=== PATIENT | female | born 1935 | race Caucasian/White ===

== ENCOUNTER 2024-06-10 00:38 | Inpatient (IN) | payer MEDICARE, OTHER ==
[~2024-06-10] VITALS: Ht 162.6 cm; Wt 58.1 kg
[2024-06-10] MEDS ORDERED: MAGN400O6 PO (01:07)
[2024-06-10] MEDS ORDERED: ERGO2000 PO (01:07)
[2024-06-10] MEDS ORDERED: METO-357 PO (01:07)
[2024-06-10] MEDS ORDERED: ESOM40CA PO (01:07)
[2024-06-10] MEDS ORDERED: ROSU20TA2 PO (01:07)
[2024-06-10] MEDS ORDERED: IVER3TAB2 PO (01:07)
[2024-06-10] MEDS ORDERED: LATA7.5D EACHEYE (01:07)
[2024-06-10] MEDS ORDERED: POTA8TAB3 PO (01:07)
[2024-06-10] MEDS ORDERED: METH5TAB70 PO (01:07)
[2024-06-10] MEDS ORDERED: AMLO-212 PO (01:07)
[2024-06-10] MEDS ORDERED: ACET-73 PO (01:07)
[2024-06-10] MEDS ORDERED: CYAN100T44 PO (01:07)
[2024-06-10] MEDS ORDERED: ASPI81TA31 PO (01:07)
[2024-06-10] MEDS ORDERED: FURO20TA4 PO (01:07)
[2024-06-10] MEDS ORDERED: DIVA125C2 PO (01:07)
[2024-06-10] MEDS ORDERED: LOSA50TA39 PO (01:07)
[2024-06-10] MEDS ORDERED: MEMA10TA PO (01:07)
[2024-06-10] MEDS ORDERED: FERR325T6 PO (01:07)
[2024-06-10] MEDS ORDERED: NAPR-1196 PO (01:07)
[2024-06-10 01:26] LABS: BASOPHILS % (AUTO) 0.8 % (0.0-2.0); EOSINOPHILS # (AUTO) 0.2 K/uL (0.0-0.7); EOSINOPHILS % (AUTO) 3.1 % (0.0-7.0); HEMATOCRIT 34.4 % (31.2-41.9); HEMOGLOBIN 10.9 g/dL (10.9-14.3); LYMPHOCYTES # (AUTO) 2.1 K/uL (0.8-4.8); MEAN CORPUSCULAR HEMOGLOBIN 30.5 uug (24.7-32.8); MEAN CORPUSCULAR HGB CONC 32 g/dL (32.3-35.6); MEAN CORPUSCULAR VOLUME 96.4 fL (75.5-95.3); MONOCYTES # (AUTO) 0.5 K/uL (0.1-1.30); MONOCYTES % (AUTO) 9.7 % (0.0-11.0); NEUTROPHILS # (AUTO) 2.1 K/uL (1.8-8.9); NEUTROPHILS % (AUTO) 43.4 % (38.5-71.5); PLATELET COUNT (AUTO) 210 K/uL (179-408); RED BLOOD CELL COUNT(AUTO) 3.57 MIL/uL (3.63-4.92); WHITE BLOOD COUNT (AUTO) 4.9 K/uL (3.8-11.8)
[2024-06-10 01:54] LABS: *BILIRUBIN,URIN NEGATIVE (NEGATIVE); *BLOOD, URINE NEGATIVE (NEGATIVE); *CLARITY,URINE CLEAR (CLEAR); *COLOR,URINE YELLOW (YELLOW); *KETONES,URINE NEGATIVE (NEGATIVE); *PROTEIN,URINE TRACE (NEGATIVE); *UROBILINOGEN,URINE 0.2 E.U./dl (NORMAL); LEUKOCYTE ESTERASE ,URINE NEGATIVE (NEGATIVE); NITRITE, URINE NEGATIVE (NEGATIVE); UGLUCOSE NEGATIVE (NEGATIVE)
[2024-06-10 02:00] LABS: THYROID STIMULATING HORMONE 1.066 mIU/mL (0.358-3.740)
[2024-06-10 02:11] LABS: ETHANOL < 3 MG/DL (0-10)
[2024-06-10 02:29] LABS: BACTERIA,URINE FEW /HPF (NONE SEEN); RBC,URINE 0-3 /HPF (0-3); SQUAMOUS EPITHELIAL CELL,UR FEW /HPF (NONE SEEN); WBC,URINE NONE SEEN /HPF (0-3)
[2024-06-10 02:48] LABS: *AMPHETAMINE, URINE NEGATIVE (NEGATIVE); *BARBITURATE, URINE NEGATIVE (NEGATIVE); *BENZODIAZEPINE, URINE NEGATIVE (NEGATIVE); *CANNABINOID, URINE NEGATIVE (NEGATIVE); *COCCAINE, URINE NEGATIVE (NEGATIVE); *OPIATE, URINE NEGATIVE (NEGATIVE); *PHENCYCLIDINE SCREEN,URINE NEGATIVE (NEGATIVE); FENTANYL, URINE NEGATIVE (NEGATIVE)
[2024-06-10 03:03] LABS: ALANINE AMINOTRANSFERASE 11 U/L (14-59); ALBUMIN 3.6 g/dL (3.4-5.0); ALKALINE PHOSPHATASE 84 U/L (50-136); ASPARTATE AMINOTRANSFERASE 7 U/L (15-37); BILIRUBIN,DIRECT 0.2 mg/dL (0.0-0.2); BILIRUBIN,TOTAL 0.6 mg/dL (0.2-1.0); CARBON DIOXIDE 32 mmol/L (21-32); CHLORIDE 104 mmol/L (98-107); CREATININE 1.1 mg/dL (0.6-1.3); GLUCOSE 103 mg/dL (74-106); POTASSIUM 4.1 mmol/L (3.5-5.1); SODIUM SERUM 144 mmol/L (136-145); TOTAL PROTEIN, SERUM 7.1 g/dL (6.4-8.2); UREA NITROGEN, BLOOD 28 mg/dL (7-18)
[2024-06-10 03:26] LABS: ACETAMINOPHEN < 10.0 ug/mL (10-30)
[2024-06-10 06:05] VITALS: BP 152/71; TEMP 98; O2SAT 96
[2024-06-10 07:54] VITALS: BP 155/64; TEMP 98.6; O2SAT 97
[2024-06-10] MEDS ORDERED: MAGNESIUM HYDROXIDE 30 ML LIQUID UDC PO PRN (08:45)
[2024-06-10] MEDS ORDERED: ACETAMINOPHEN 325 MG TABLET PO PRN (08:45)
[2024-06-10] MEDS ORDERED: MAG HYDROX/AL HYDROX/SIMETH 30 ML LIQUID UDC PO PRN (08:45)
[2024-06-10] MEDS ORDERED: ZOLPIDEM 5 MG TABLET PO PRN (08:45)
[2024-06-10] MEDS ORDERED: QUETIAPINE FUMARATE 25 MG TABLET PO PRN (08:45)
[2024-06-10] MEDS ORDERED: ACET-2154 PO (09:44)
[2024-06-10] MEDS ORDERED: MEMA7CAP2 PO (09:44)
[2024-06-10] MEDS ORDERED: ACET325T53 PO (09:44)
[2024-06-10] MEDS ORDERED: ERGO500040 PO (09:44)
[2024-06-10 16:57] VITALS: BP 152/54; TEMP 98.4; O2SAT 97
[2024-06-10 20:05] VITALS: BP 148/60; TEMP 98.3; O2SAT 96
[2024-06-10] MEDS: MIRTAZAPINE 15 MG TABLET PO SCH (20:29)
[2024-06-11] MEDS: ENSURE ENLIVE (VAN) 240 ML LIQUID PO SCH (08:35)
[2024-06-11 09:12] VITALS: BP 147/65; TEMP 98.2; O2SAT 98
[2024-06-11] MEDS ORDERED: MAGNESIUM HYDROXIDE 30 ML LIQUID UDC PO PRN (09:45)
[2024-06-11] MEDS ORDERED: ACETAMINOPHEN 325 MG TABLET-SA PATIENTS-PAIN ONLY PO PRN (09:45)
[2024-06-11] MEDS ORDERED: ACETAMINOPHEN 325 MG TABLET PO PRN (11:30)
[2024-06-11] MEDS: METOPROLOL SUCCINATE XL 50 MG TAB.SR.24H PO SCH (12:00)
[2024-06-11] MEDS: PANTOPRAZOLE SODIUM 40 MG TABLET.DR PO SCH (12:00)
[2024-06-11] MEDS: MEMANTINE HCL 5 MG TABLET PO SCH (12:00)
[2024-06-11] MEDS: FERROUS SULFATE 325 MG TABEC PO SCH (12:00)
[2024-06-11] MEDS: AMLODIPINE 5 MG TABLET PO SCH (12:00)
[2024-06-11] MEDS: POTASSIUM CHLORIDE 8 MEQ TAB.PRT.SR PO SCH (12:29)
[2024-06-11] MEDS: IVERMECTIN 3 MG TABLET PO SCH (12:29)
[2024-06-11] MEDS: METHIMAZOLE 5 MG TABLET PO SCH (12:30)
[2024-06-11 14:52] LABS: BASOPHILS # (AUTO) 0.1 K/UL (0.0-0.2); BASOPHILS % (AUTO) 1.1 % (0.0-2.0); EOSINOPHILS % (AUTO) 0.4 % (0.0-7.0); HEMATOCRIT 32.9 % (31.2-41.9); HEMOGLOBIN 10.9 g/dL (10.9-14.3); LYMPHOCYTES % (AUTO) 20.1 % (20.5-51.5); MEAN CORPUSCULAR HEMOGLOBIN 30.5 uug (24.7-32.8); MEAN CORPUSCULAR HGB CONC 33 g/dL (32.3-35.6); MEAN CORPUSCULAR VOLUME 92.5 fL (75.5-95.3); MONOCYTES # (AUTO) 0.3 K/uL (0.1-1.30); MONOCYTES % (AUTO) 5.8 % (0.0-11.0); NEUTROPHILS # (AUTO) 3.8 K/uL (1.8-8.9); NEUTROPHILS % (AUTO) 72.6 % (38.5-71.5); PLATELET COUNT (AUTO) 205 K/uL (179-408); RED BLOOD CELL COUNT(AUTO) 3.56 MIL/uL (3.63-4.92); RED CELL DISTRIBUTION WIDTH 15.7 % (12.3-17.7); WHITE BLOOD COUNT (AUTO) 5.2 K/uL (3.8-11.8)
[2024-06-11 14:55] LABS: DIFFERENTIAL COMMENT 1
[2024-06-11 15:29] LABS: ALANINE AMINOTRANSFERASE 7 U/L (14-59); ALBUMIN 3.5 g/dL (3.4-5.0); ALKALINE PHOSPHATASE 77 U/L (50-136); ASPARTATE AMINOTRANSFERASE 12 U/L (15-37); BILIRUBIN,TOTAL 0.6 mg/dL (0.2-1.0); CALCIUM 8.8 mg/dL (8.5-10.1); CARBON DIOXIDE 30 mmol/L (21-32); CHLORIDE 106 mmol/L (98-107); CREATININE 1.1 mg/dL (0.6-1.3); GLUCOSE 152 mg/dL (74-106); POTASSIUM 3.6 mmol/L (3.5-5.1); SODIUM SERUM 145 mmol/L (136-145); UREA NITROGEN, BLOOD 25 mg/dL (7-18)
[2024-06-11 16:19] VITALS: BP 135/67; TEMP 98.1; O2SAT 98
[2024-06-11] MEDS: FUROSEMIDE 20 MG TABLET PO SCH (16:24)
[2024-06-11] MEDS: NAPROXEN 250 MG TABLET PO SCH (16:24)
[2024-06-11 20:04] VITALS: BP 140/66; TEMP 98.2; O2SAT 96
[2024-06-11] MEDS: ATORVASTATIN 40 MG TABLET PO SCH (20:48)
[2024-06-12 08:20] VITALS: BP 145/59; TEMP 98.5; O2SAT 98
[2024-06-12] MEDS: ASPIRIN 81 MG TAB.CHEW PO SCH (08:51)
[2024-06-12] MEDS: ERGOCALCIFEROL 50,000 UNIT CAPSULE PO SCH (08:52)
[2024-06-12] MEDS: CYANOCOBALAMIN 100 MCG TABLET PO SCH (08:53)
[2024-06-12] MEDS ORDERED: Medication Not On Formulary EA (Rosuvastatin Calcium (Crestor) 20 MG) PO SCH (09:00)
[2024-06-12] MEDS ORDERED: Medication Not On Formulary EA (Esomeprazole Mag Trihydrate (Nexium) 40 MG) PO SCH (09:00)
[2024-06-12] MEDS ORDERED: Medication Not On Formulary EA (Potassium Chloride (Klor-Con 8) 8 MEQ) PO SCH (09:00)
[2024-06-12] MEDS ORDERED: Medication Not On Formulary EA (Ferrous Sulfate 325 MG) PO SCH (09:00)
[2024-06-12] MEDS ORDERED: IVERMECTIN 3 MG TABLET PO SCH (09:00)
[2024-06-12] MEDS ORDERED: Medication Not On Formulary EA (Memantine HCl (Memantine HCl ER) 7 MG) PO SCH (09:00)
[2024-06-12] MEDS: LOSARTAN POTASSIUM 50 MG TABLET PO SCH (12:00)
[2024-06-12] MEDS: OXCARBAZEPINE 150 MG TABLET PO SCH (12:30)
[2024-06-12 16:41] VITALS: BP 125/63; TEMP 98.3; O2SAT 98
[2024-06-12 19:52] VITALS: BP 130/56; TEMP 98.1; O2SAT 98
[2024-06-12] MEDS: QUETIAPINE FUMARATE 25 MG TABLET PO SCH (21:08)
[2024-06-13 07:38] VITALS: BP 145/74; TEMP 97.8; O2SAT 96
[2024-06-13] MEDS: CYANOCOBALAMIN 1,000 MCG TABLET PO SCH (08:35)
[2024-06-13 15:26] VITALS: BP 153/85; TEMP 98; O2SAT 96
[2024-06-13] MEDS: OXCARBAZEPINE 150 MG TABLET PO SCH (16:15)
[2024-06-13 19:48] VITALS: BP 146/74; TEMP 98.1; O2SAT 96
[2024-06-13] MEDS: QUETIAPINE FUMARATE 25 MG TABLET PO SCH (20:08)
[2024-06-14 07:49] VITALS: BP 123/80; TEMP 98.4; O2SAT 100
[2024-06-14 16:13] VITALS: BP 132/57; TEMP 98; O2SAT 98
[2024-06-14 20:18] VITALS: BP 126/62; TEMP 97.9; O2SAT 98
[2024-06-14] MEDS: ATORVASTATIN 20 MG TABLET PO SCH (20:22)
[2024-06-15 08:16] VITALS: BP 114/60; TEMP 98; O2SAT 99
[2024-06-15] MEDS ORDERED: CYANOCOBALAMIN 1,000 MCG TABLET PO SCH (09:00)
[2024-06-15 15:13] VITALS: BP 128/51; TEMP 98; O2SAT 99
[2024-06-15 20:00] VITALS: BP 140/64; TEMP 98; O2SAT 95
[2024-06-16 08:00] VITALS: BP 134/75; TEMP 98
[2024-06-16 16:00] VITALS: BP 136/65; TEMP 98.1; O2SAT 97
[2024-06-16 20:07] VITALS: BP 146/60; TEMP 98.2; O2SAT 98
[2024-06-17 08:19] VITALS: BP 125/97; TEMP 98.1; O2SAT 98
[2024-06-17 17:37] VITALS: BP 139/70; TEMP 98; O2SAT 99
[2024-06-17 20:00] VITALS: BP 107/64; TEMP 98.2; O2SAT 97
[2024-06-18 08:15] VITALS: BP 142/70; TEMP 98.3; O2SAT 98
[2024-06-18] MEDS: QUETIAPINE FUMARATE 25 MG TABLET PO SCH (08:28)
[2024-06-18 16:19] VITALS: BP 147/62; TEMP 98.1; O2SAT 98
[2024-06-18 19:30] VITALS: BP_SYST 130; BP_SYST 76; BP_DIAS 40; BP_DIAS 61; TEMP 97.2; TEMP 97.4; O2SAT 97
[2024-06-19 09:00] VITALS: BP 117/62; TEMP 98.3; O2SAT 98
[2024-06-19 15:04] VITALS: BP 130/73; TEMP 98.1; O2SAT 98
[2024-06-19] MEDS: MEMANTINE HCL 5 MG TABLET PO SCH (17:15)
[2024-06-19 20:00] VITALS: BP 136/79; TEMP 97.7; O2SAT 97
[2024-06-20 07:38] VITALS: BP 132/63; TEMP 98; O2SAT 98
[2024-06-20 15:03] VITALS: BP 131/59; TEMP 98; O2SAT 98
[2024-06-20 20:00] VITALS: BP 123/78; TEMP 98.1; O2SAT 97
[2024-06-21 07:45] LABS: CALCIUM 8.9 mg/dL (8.5-10.1); CARBON DIOXIDE 31 mmol/L (21-32); CHLORIDE 109 mmol/L (98-107); CREATININE 1.1 mg/dL (0.6-1.3); GLUCOSE 79 mg/dL (74-106); MAGNESIUM 2.2 mg/dL (1.8-2.4); POTASSIUM 4.4 mmol/L (3.5-5.1); SODIUM SERUM 146 mmol/L (136-145); UREA NITROGEN, BLOOD 40 mg/dL (7-18)
[2024-06-21 07:46] VITALS: BP 150/67; TEMP 98; O2SAT 99
[2024-06-21 15:50] VITALS: BP 133/58; TEMP 98.2; O2SAT 99
[2024-06-21 20:00] VITALS: BP 156/69; TEMP 98; O2SAT 98
[2024-06-21] MEDS: QUETIAPINE FUMARATE 25 MG TABLET PO SCH (21:18)
[2024-06-22 07:48] VITALS: BP 169/64; TEMP 98; O2SAT 100
[2024-06-22 10:17] LABS: EOSINOPHILS # (AUTO) 0.1 K/uL (0.0-0.7); EOSINOPHILS % (AUTO) 2.1 % (0.0-7.0); HEMATOCRIT 33.5 % (31.2-41.9); LYMPHOCYTES # (AUTO) 0.9 K/uL (0.8-4.8); LYMPHOCYTES % (AUTO) 25.4 % (20.5-51.5); MEAN CORPUSCULAR HEMOGLOBIN 30.8 uug (24.7-32.8); MEAN CORPUSCULAR HGB CONC 33 g/dL (32.3-35.6); MEAN CORPUSCULAR VOLUME 93.7 fL (75.5-95.3); MONOCYTES # (AUTO) 0.3 K/uL (0.1-1.30); MONOCYTES % (AUTO) 9.1 % (0.0-11.0); NEUTROPHILS # (AUTO) 2.3 K/uL (1.8-8.9); NEUTROPHILS % (AUTO) 62.4 % (38.5-71.5); PLATELET COUNT (AUTO) 207 K/uL (179-408); RED BLOOD CELL COUNT(AUTO) 3.58 MIL/uL (3.63-4.92); RED CELL DISTRIBUTION WIDTH 15.9 % (12.3-17.7); WHITE BLOOD COUNT (AUTO) 3.7 K/uL (3.8-11.8)
[2024-06-22 10:24] LABS: DIFFERENTIAL COMMENT 1
[2024-06-22 10:44] LABS: ALANINE AMINOTRANSFERASE 19 U/L (14-59); ALBUMIN 3.4 g/dL (3.4-5.0); ALKALINE PHOSPHATASE 73 U/L (50-136); ASPARTATE AMINOTRANSFERASE 19 U/L (15-37); BILIRUBIN,TOTAL 0.4 mg/dL (0.2-1.0); CALCIUM 8.8 mg/dL (8.5-10.1); CARBON DIOXIDE 30 mmol/L (21-32); CHLORIDE 107 mmol/L (98-107); CREATININE 1.2 mg/dL (0.6-1.3); GLUCOSE 110 mg/dL (74-106); MAGNESIUM 2.1 mg/dL (1.8-2.4); POTASSIUM 3.8 mmol/L (3.5-5.1); SODIUM SERUM 145 mmol/L (136-145); UREA NITROGEN, BLOOD 40 mg/dL (7-18)
[2024-06-22 15:47] VITALS: BP 145/54; TEMP 98; O2SAT 98
[2024-06-22 20:00] VITALS: BP 135/61; TEMP 98; O2SAT 98
[2024-06-23 07:47] VITALS: BP 153/71; TEMP 98.4; O2SAT 99
[2024-06-23 15:12] VITALS: BP 134/70; TEMP 98; O2SAT 98
[2024-06-23 20:00] VITALS: BP 129/67; TEMP 98; O2SAT 97
[2024-06-24 08:45] VITALS: BP 160/61; TEMP 98.2; O2SAT 98
[2024-06-24 17:13] VITALS: BP 128/59; TEMP 98.1; O2SAT 98
[2024-06-24 20:00] VITALS: BP 148/68; TEMP 98.1; O2SAT 97
[2024-06-25 09:22] VITALS: BP 159/63; TEMP 98.1; O2SAT 97
[2024-06-25 17:23] VITALS: BP 149/77; TEMP 98; O2SAT 97
[2024-06-25 19:56] VITALS: BP 140/66; TEMP 98; O2SAT 96
[2024-06-26 07:57] VITALS: BP 111/66; TEMP 97.8; O2SAT 98
[2024-06-26 15:18] VITALS: BP 130/67; TEMP 97.6; O2SAT 98
== END 2024-06-26 15:15 | DRG 885 ==
LOC: ER 01:16 → GPS 05:38
PROVIDERS: ADMIT Psychiatry & Neurology Psychiatry; ATTEND Student in an Organized Health Care Education/Training Program
DX: F39 Unspecified mood [affective] disorder (principal); I11.0 Hypertensive heart disease with heart failure; F03.911 Unspecified dementia, unspecified severity, with agitation; F03.94 Unspecified dementia, unspecified severity, with anxiety; F03.93 Unspecified dementia, unspecified severity, with mood disturbance; E78.5 Hyperlipidemia, unspecified; R26.81 Unsteadiness on feet; M62.81 Muscle weakness (generalized); Z79.899 Other long term (current) drug therapy; H40.9 Unspecified glaucoma; E53.8 Deficiency of other specified B group vitamins; Z91.148 Patient's other noncompliance with medication regimen for other reason; R79.89 Other specified abnormal findings of blood chemistry; E05.90 Thyrotoxicosis, unspecified without thyrotoxic crisis or storm; Z87.440 Personal history of urinary (tract) infections; L30.9 Dermatitis, unspecified; I25.10 Atherosclerotic heart disease of native coronary artery without angina pectoris; I50.9 Heart failure, unspecified; R13.10 Dysphagia, unspecified; I25.2 Old myocardial infarction; H54.3 Unqualified visual loss, both eyes; H91.93 Unspecified hearing loss, bilateral; M15.9 Polyosteoarthritis, unspecified
CPT/HCPCS: 36415; 70450; 71045; 83735; 84443; 85025; 93005; 97161; C1758; G0480